=== PATIENT | female | born 1990 | race Caucasian/White ===

== ENCOUNTER 2016-10-26 09:22 | Emergency (ER) | payer MEDICAID ==
--- NOTE | 2016-10-26 09:45 | C.PDOC ---
History Of Present Illness Patient is a 26 y/o female that presents to the ED for evaluation of intermittent LLQ abdominal pain associated with nausea for the last 2 weeks. Patient reports constipation for the last 2 days. LMP was 09/20/16 and is late with menses. She reports usually has cramps prior to period. Otherwise, denies any vomiting, dysuria, vaginal bleeding, vaginal discharge, or any other associated symptoms at this time. Time Seen by Provider: 10/26/16 09:35 Chief Complaint (Nursing): Abdominal Pain History Per: Patient History/Exam Limitations: no limitations Onset/Duration Of Symptoms: Days (2 weeks) Current Symptoms Are (Timing): Still Present Location Of Pain/Discomfort: LLQ Radiation Of Pain To:: None Quality Of Discomfort: "Pain" Associated Symptoms: Nausea, Constipation. denies: Fever, Chills, Vomiting, Diarrhea, Loss Of Appetite, Back Pain, Chest Pain, Urinary Symptoms Exacerbating Factors: None Alleviating Factors: None Recent travel outside of the [place]: No Additional History Per: Patient Abnormal Vaginal Bleeding: No Last Menstral Period: 09/20/16 Past Medical History Reviewed: Historical Data, Nursing Documentation, Vital Signs Vital Signs: Last Vital Signs Temp 98.2 F 10/26/16 10:25 Pulse 72 10/26/16 10:25 Resp 20 10/26/16 10:25 BP 105/69 10/26/16 10:25 Pulse Ox 98 10/26/16 10:25 - Medical History PMH: No Chronic Diseases Surgical History: - [facility] Procedures MONITORING NOS (08/20/13) INJECT/INFUSE NEC (08/20/13) Family History: States: Unknown Family Hx - Social History Hx Alcohol Use: No Hx Substance Use: No - Immunization History Hx Tetanus Toxoid Vaccination: No Hx Influenza Vaccination: No Hx Pneumococcal Vaccination: No Review Of Systems Constitutional: Negative for: Fever, Chills Cardiovascular: Negative for: Chest Pain Respiratory: Negative for: Cough, Shortness of Breath Gastrointestinal: Positive for: Nausea, Abdominal Pain (LLQ), Constipation. Negative for: Vomiting, Diarrhea Genitourinary: Negative for: Dysuria, Frequency, Hematuria, Vaginal Discharge, Vaginal Bleeding Musculoskeletal: Negative for: Back Pain Skin: Negative for: Rash Neurological: Negative for: Weakness, Numbness, Headache, Dizziness Physical Exam - Physical Exam Appears: Non-toxic, No Acute Distress Skin: Normal Color, Warm, Dry Head: Atraumatic, Normacephalic Eye(s): bilateral: Normal Inspection, EOMI Nose: Normal Oral Mucosa: Moist Neck: Normal ROM, Supple Chest: Symmetrical Cardiovascular: Rhythm Regular, No Murmur Respiratory: Normal Breath Sounds, No Rales, No Rhonchi, No Wheezing Gastrointestinal/Abdominal: Soft, Tenderness (minimal left suprapubic), No Mass , No Distention, No Guarding, No Rebound Back: Normal Inspection, No CVA Tenderness Extremity: Normal ROM, No Tenderness, No Deformity, No Swelling Neurological/Psych: Oriented x3, Normal Speech Gait: Steady ED Course And Treatment O2 Sat by Pulse Oximetry: 100 (on RA) Pulse Ox Interpretation: Normal Progress Note: Urinalysis ordered and reviewed which was negative for and has WBC and LE. Patient remained afebrile in no acute distress. She reports abdominal pain has improved, abdomen is soft without guarding or signs of surgical pathology. Explain results to patient and will discharge with Rx. Advise follow up with her primary in one week. Disposition Counseled Patient/Family Regarding: Diagnosis, Need For Followup, Rx Given - [facility] Disposition: HOME/ ROUTINE Disposition Time: 10:13 Condition: STABLE Additional Instructions: Take antibiotic twice daily and be sure to finish taking all of antibiotic. Drink plenty of fluids. If urine culture was performed, call back for results in 2-3 days for results to confirm antibiotic is treating UTI well. Prescriptions: Ciprofloxacin HCl [Cipro] 500 mg PO BID #14 tab Instructions: Urinary Tract Infection in Women (DC) - POA Present On Arrival: None - Clinical Impression Clinical Impression: UTI (urinary tract infection) - PA / MANAGER WOUND CARE / Resident Statement MD/DO has reviewed & agrees with the documentation as recorded. - Scribe Statement The provider has reviewed the documentation as recorded by the Genesisibe Arthur Lewis All medical record entries made by the Alphonso were at my direction and personally dictated by me. I have reviewed the chart and agree that the record accurately reflects my personal performance of the history, physical exam, medical decision making, and the department course for this patient. I have also personally directed, reviewed, and agree with the discharge instructions and disposition.
[2016-10-26 10:09] LABS: RBC URINE 4 /hpf (0-3); URINE BILIRUBIN NEGATIVE (NEGATIVE); URINE BLOOD NEGATIVE (NEGATIVE); URINE COLOR Amber (YELLOW); URINE GLUCOSE (UA) NORMAL (Normal); URINE KETONE NEGATIVE (NEGATIVE); URINE LEUKOCYTE ESTERASE 2+ Leu/uL (Negative); URINE PROTEIN 1+ mg/dL (NEGATIVE); WBC URINE 18 /hpf (0-5)
[2016-10-26 10:37] VITALS: BP 105/69; PULSE 72; RESP 20; TEMP 98.2
[2016-10-26 14:58] VITALS: O2SAT 100
== END 2016-10-26 10:26 | disposition home or self-care (01) ==
LOC: C.ER 09:22
DX: N39.0 Urinary tract infection, site not specified (principal)

== ENCOUNTER 2017-03-10 15:43 | Emergency (ER) | payer MEDICAID ==
[2017-03-10 15:51] VITALS: BP 110/75; PULSE 79; RESP 18; TEMP 97.9; O2SAT 98
--- NOTE | 2017-03-10 16:25 | C.PDOC ---
History Of Present Illness 26 y/o female presents to the ED for evaluation after the cotton from a Q-tip was stuck in her left ear while cleaning the ear today. Patient states she was seen by Dr. Porter, who requested her to come to ER for further evaluation. Otherwise, denies any change in hearing, ear pain, swelling, or ear discharge. Time Seen by Provider: 03/10/17 16:08 Chief Complaint (Nursing): ENT Problem History Per: Patient History/Exam Limitations: None Onset/Duration Of Symptoms: Hrs Current Symptoms Are (Timing): Still Present Quality (Ear): Foreign Body. denies: Pain W/Touch, Redness, Swelling, Discharge Past Medical History Reviewed: Historical Data, Nursing Documentation, Vital Signs Vital Signs: Last Vital Signs Temp 97.9 F 03/10/17 15:47 Pulse 79 03/10/17 15:47 Resp 18 03/10/17 15:47 BP 110/75 03/10/17 15:47 Pulse Ox 98 03/10/17 16:42 Surgical History: - [facility] Procedures MONITORING NOS (08/20/13) INJECT/INFUSE NEC (08/20/13) Family History: States: Unknown Family Hx - Social History Hx Alcohol Use: No Hx Substance Use: No - Immunization History Hx Tetanus Toxoid Vaccination: No Hx Influenza Vaccination: No Hx Pneumococcal Vaccination: No Review Of Systems Except As Marked, All Systems Reviewed And Found Negative. Constitutional: Negative for: Fever, Chills ENT: Positive for: Other (foreign body in left ear ). Negative for: Ear Pain, Ear Discharge Physical Exam - Physical Exam Appears: Non-toxic, No Acute Distress Skin: Normal Color, Warm, Dry Head: Atraumatic, Normacephalic Eye(s): bilateral: Normal Inspection, EOMI Ear(s): Left: Other (small opacification at 2'0 clock position. No FB), Right: Normal Nose: Normal Oral Mucosa: Moist Neck: Normal ROM, Supple Chest: Symmetrical Respiratory: No Accessory Muscle Use Neurological/Psych: Oriented x3, Normal Speech ED Course And Treatment O2 Sat by Pulse Oximetry: 98 (RA) Pulse Ox Interpretation: Normal Progress Note: Patient is being discharged home with instructions to follow up with ENT in 1-2 days. Patient was advised not put Qtips in her ears. Pt seen and evaluated by Dr Fajardo, agree dupon plan and discharge. Disposition - Disposition Referrals: Trav Duvall MD [Staff Provider] - Disposition: HOME/ ROUTINE Disposition Time: 16:23 Condition: STABLE Additional Instructions: Do not put Qtips in your ears. Follow up with your primary medical doctor or clinic in 2-5 days for further evaluation. Return to the emergency department at any time if symptoms persist or worsen. 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 - Scribe Statement The provider has reviewed the documentation as recorded by the Scribe Arthur Lewis All medical record entries made by the Scribe were at my direction and personally dictated by me. I have reviewed the chart and agree that the record accurately reflects my personal performance of the history, physical exam, medical decision making, and the department course for this patient. I have also personally directed, reviewed, and agree with the discharge instructions and disposition.
== END 2017-03-10 16:35 | disposition home or self-care (01) ==
LOC: C.ER 15:43
DX: T16.2XXA Foreign body in left ear, initial encounter (principal); X58.XXXA Exposure to other specified factors, initial encounter

== ENCOUNTER 2017-05-16 14:08 | Emergency (ER) | payer MEDICAID ==
[2017-05-16 14:22] VITALS: BP 110/79; PULSE 65; RESP 16; TEMP 98.2; O2SAT 99
[2017-05-16] MEDS ORDERED: guaiFENesin 100 mg/5 ml Syrup UD PO STA (14:55)
--- NOTE | 2017-05-16 14:56 | C.PDOC ---
History Of Present Illness July Simmons is a 26 year old female, who presents to the emergency department complaining of cough, congestion, and subjective fever onset 3 days ago. Patient was seen by PMD who prescribed her antibiotics with no relief. Patient has not taken any cold or cough medicine. No further medical complaints. PMD: Bashir Porter Time Seen by Provider: 05/16/17 14:47 Chief Complaint (Nursing): Cough, Cold, Congestion History Per: Patient History/Exam Limitations: no limitations Onset/Duration Of Symptoms: Days (x3) Associated Symptoms: Fever (subjective), Cough, Nasal Congestion Past Medical History Reviewed: Historical Data, Nursing Documentation, Vital Signs Vital Signs: Last Vital Signs Temp 98.2 F 05/16/17 14:20 Pulse 65 05/16/17 14:20 Resp 16 05/16/17 14:20 BP 110/79 05/16/17 14:20 Pulse Ox 99 05/16/17 14:56 Surgical History: - [facility] Procedures MONITORING NOS (08/20/13) INJECT/INFUSE NEC (08/20/13) Family History: States: Unknown Family Hx - Social History Hx Tobacco Use: No Hx Alcohol Use: No Hx Substance Use: No - Immunization History Hx Tetanus Toxoid Vaccination: No Hx Influenza Vaccination: No Hx Pneumococcal Vaccination: No Review Of Systems Except As Marked, All Systems Reviewed And Found Negative. Constitutional: Positive for: Fever ENT: Positive for: Nose Congestion Respiratory: Positive for: Cough Physical Exam - Physical Exam Appears: No Acute Distress Skin: Normal Color, Warm, Dry Eye(s): bilateral: Normal Inspection, PERRL, EOMI Neck: Normal, Normal ROM, Supple Cardiovascular: Rhythm Regular, No Murmur Respiratory: Normal Breath Sounds Gastrointestinal/Abdominal: Normal Exam, Bowel Sounds, Soft, No Tenderness Extremity: Normal ROM, No Deformity, No Swelling Neurological/Psych: Normal Speech, Normal Motor, Normal Sensation ED Course And Treatment O2 Sat by Pulse Oximetry: 99 (RA) Pulse Ox Interpretation: Normal Medical Decision Making Medical Decision Making: mild viral syndrome, no s/s of bacterial infection, unimproved on PO ABX d/c ABX otc cold meds educated. Disposition Doctor Will See Patient In The: Office Counseled Patient/Family Regarding: Studies Performed, Diagnosis - Disposition Referrals: Bashir Porter MD [Non-Staff] - Disposition: HOME/ ROUTINE Disposition Time: 14:56 Condition: GOOD Additional Instructions: continue Dayquil/Nyquil as directed- used the less-expensive brands Home from work/school until afebrile for 24 hours Follow-up w your PMD as needed. Instructions: Viral Syndrome (ED) Forms: [employer] (Nauruan) - Clinical Impression Clinical Impression: Viral syndrome - Scribe Statement Yogesh Mora Provider Attestation: All medical record entries made by the Scribe were at my direction and personally dictated by me. I have reviewed the chart and agree that the record accurately reflects my personal performance of the history, physical exam, medical decision making, and the department course for this patient. I have also personally directed, reviewed, and agree with the discharge instructions and disposition.
[2017-05-16] MEDS ORDERED: guaiFENesin 100 mg/5 ml Syrup UD ONE (15:01)
== END 2017-05-16 15:02 | disposition home or self-care (01) ==
LOC: C.ER 14:08
DX: B34.9 Viral infection, unspecified (principal)

== ENCOUNTER 2017-08-21 13:19 | Emergency (ER) | payer MEDICAID ==
--- NOTE | 2017-08-21 13:53 | C.PDOC ---
History Of Present Illness 27 y/o female presents to the ER complaining of a myriad of symptoms. Patient reports that she has chest pain, back pain, abdominal pain, and body aches. Patient reports that she has throat pain for the past 6 months. Patient reports that she went to see an ENT 3 weeks ago and he gave her antibiotics. Patient denies fever, chills, and cough. Chief Complaint (Nursing): Chest Pain History Per: Patient History/Exam Limitations: no limitations Onset/Duration Of Symptoms: Days Current Symptoms Are (Timing): Still Present Severity: Moderate Past Medical History Reviewed: Historical Data, Nursing Documentation, Vital Signs Vital Signs: Last Vital Signs Temp 98.2 F 08/21/17 14:47 Pulse 65 08/21/17 14:47 Resp 16 08/21/17 14:47 BP 100/66 08/21/17 14:47 Pulse Ox 99 08/21/17 15:23 - Medical History PMH: No Chronic Diseases Surgical History: Tonsillectomy, - [facility] Procedures MONITORING NOS (08/20/13) INJECT/INFUSE NEC (08/20/13) Family History: States: No Known Family Hx - Social History Hx Tobacco Use: No Hx Alcohol Use: No Hx Substance Use: No - Immunization History Hx Tetanus Toxoid Vaccination: No Hx Influenza Vaccination: No Hx Pneumococcal Vaccination: No Review Of Systems Except As Marked, All Systems Reviewed And Found Negative. Constitutional: Positive for: Malaise. Negative for: Fever, Chills ENT: Positive for: Throat Pain, Throat Swelling Cardiovascular: Positive for: Chest Pain Respiratory: Negative for: Cough Gastrointestinal: Positive for: Abdominal Pain. Negative for: Nausea, Vomiting , Diarrhea Musculoskeletal: Positive for: Back Pain Physical Exam - Physical Exam Appears: Non-toxic, No Acute Distress Skin: Normal Color, Warm Head: Atraumatic, Normacephalic Eye(s): bilateral: Normal Inspection, PERRL Ear(s): Bilateral: Normal Nose: Normal Oral Mucosa: Moist Throat: Normal, No Erythema, No Exudate Chest: Symmetrical, Tenderness (tenderness on palpation in chest wall) Cardiovascular: Rhythm Regular Respiratory: Normal Breath Sounds, No Accessory Muscle Use, No Rales, No Rhonchi , No Wheezing Gastrointestinal/Abdominal: Normal Exam, Soft, No Tenderness Extremity: Normal ROM, No Tenderness, No Deformity, No Swelling, Other (diffuse myalgia to upper extremities) ED Course And Treatment ECG: Interpreted By Me, Viewed By Me ECG Rhythm: Sinus Rhythm O2 Sat by Pulse Oximetry: 99 (RA) Pulse Ox Interpretation: Normal Progress Note: Patient given Maalox. Patient states that her throat feels better. Patient has been given 2 weeks of PPIS and discharged. Medical Decision Making Medical Decision Making: Differential Diagnoses: --GERD vs. Viral Syndrome --PE Unlikely --No PERC Criteria Plan: -Advise patient for viral syndrome and possible GERD Disposition - Disposition Referrals: [facility] [Outside] Disposition: HOME/ ROUTINE Disposition Time: 23:49 Condition: GOOD Prescriptions: Pantoprazole Sodium [Protonix] 40 mg PO DAILY #14 ect Instructions: Diet for Ulcers and Gastritis (ED), Gastroesophageal Reflux Disease (ED) Forms: General Discharge Instructions, [facility] (Burmese) Print Language: OMANI - Clinical Impression Clinical Impression: Pleuritic pain, GERD (gastroesophageal reflux disease) - Scribe Statement The provider has reviewed the documentation as recorded by the Alphonso Tillman Provider Attestation: All medical record entries made by the Scribe were at my direction and personally dictated by me. I have reviewed the chart and agree that the record accurately reflects my personal performance of the history, physical exam, medical decision making, and the department course for this patient. I have also personally directed, reviewed, and agree with the discharge instructions and disposition.
[2017-08-21] MEDS ORDERED: Aluminum Hydroxide/Magnesium Hydroxide Susp (30 mL) ONE (14:11)
[2017-08-21] MEDS: Alum-Mag Hydrox-Simethicone Susp (30 mL) PO STA (14:22)
[2017-08-21 14:50] VITALS: BP 100/66; PULSE 65; RESP 16; TEMP 98.2
[2017-08-21 15:08] VITALS: O2SAT 99
== END 2017-08-21 14:47 | disposition home or self-care (01) ==
LOC: C.ER 13:19
DX: K21.9 Gastro-esophageal reflux disease without esophagitis (principal); R07.81 Pleurodynia

== ENCOUNTER 2017-09-11 08:17 | Emergency (ER) | payer MEDICAID ==
--- NOTE | 2017-09-11 08:36 | C.PDOC ---
History Of Present Illness 27 y/o female presents to ED with complaints of chest, breast pain and headache for 5 days with associated dizziness. Patient was seen on 08/21/16 at ED for same symptoms, followed up with clinic and ENT specialist had antibiotics for throat. Patient states throat is better but chest pain and headache persisted which prompted visit to ED. Patient denies fever, chills, weakness, numbness or any other complaints at this time. Time Seen by Provider: 09/11/17 08:35 Chief Complaint (Nursing): Chest Pain History Per: Patient History/Exam Limitations: no limitations Onset/Duration Of Symptoms: Days Current Symptoms Are (Timing): Still Present Past Medical History Reviewed: Historical Data, Nursing Documentation, Vital Signs Vital Signs: Last Vital Signs Temp 97.8 F 09/11/17 12:26 Pulse 78 09/11/17 12:26 Resp 16 09/11/17 12:26 BP 109/74 09/11/17 12:26 Pulse Ox 100 09/11/17 12:26 Surgical History: Tonsillectomy, - [facility] Procedures MONITORING NOS (08/20/13) INJECT/INFUSE NEC (08/20/13) Family History: States: No Known Family Hx - Social History Hx Tobacco Use: No Hx Alcohol Use: No Hx Substance Use: No - Immunization History Hx Tetanus Toxoid Vaccination: No Hx Influenza Vaccination: No Hx Pneumococcal Vaccination: No Review Of Systems Constitutional: Negative for: Fever, Chills Eyes: Negative for: Vision Change Cardiovascular: Positive for: Chest Pain Gastrointestinal: Negative for: Nausea, Vomiting Neurological: Positive for: Headache, Dizziness. Negative for: Weakness, Numbness Physical Exam - Physical Exam Appears: Non-toxic, No Acute Distress Skin: Warm, Dry, No Rash Head: Atraumatic, Normacephalic Oral Mucosa: Moist Neck: Supple Cardiovascular: Rhythm Regular Respiratory: Normal Breath Sounds, No Rales, No Rhonchi, No Wheezing Gastrointestinal/Abdominal: Soft, No Tenderness, No Guarding, No Rebound Back: No CVA Tenderness ED Course And Treatment - Laboratory Results Result Diagrams: 09/11/17 09:24 09/11/17 09:24 ECG: Interpreted By Me, Viewed By Me ECG Rhythm: Sinus Rhythm Rate From EC (BPM) O2 Sat by Pulse Oximetry: 99 (RA) Pulse Ox Interpretation: Normal - Other Rad CXR X-Ray: Viewed By Me, Read By Radiologist Interpretation: Accession No. : [id number]. Patient Name / ID : CAMRYN CRAWFORD / [id number]. Exam Date : 09/11/2017 09:33:49 ( Approved ). Study Comment : Sex / Age : F / 27Y. Creator : Paloma Swartz MD. Dictator : Paloma Swartz MD. Weeder : Manager Environmental Affairs : Paloma Swartz MD. Approver2 : Report Date : 09/11/2017 12:38:51. My Comment : . HISTORY: chest pain. COMPARISON: None available. TECHNIQUE: Chest PA and lateral. FINDINGS: Examination limited by habitus. LUNGS: No focal consolidation. Please note that chest x-ray has limited sensitivity for the detection of pulmonary masses. PLEURA: No significant pleural effusion identified. No definite pneumothorax . CARDIOVASCULAR: The cardiomediastinal silhouette appears within normal limits of size. OSSEOUS STRUCTURES: No acute osseous abnormality identified. VISUALIZED UPPER ABDOMEN: Unremarkable. OTHER FINDINGS: None. IMPRESSION: No focal consolidation, significant pleural effusion, or definite pneumothorax identified. - CT Scan/US Head CT Other Rad Studies (CT/US): Read By Radiologist, Radiology Report Reviewed CT/US Interpretation: Accession No. : [id number]. Patient Name / ID : CAMRYN CRAWFORD / [id number]. Exam Date : 09/11/2017 10:32:46 ( Approved ). Study Comment : Sex / Age : F / 27Y. Creator : Angelica Quintero. Dictator : Paloma Swartz MD. Weeder : Manager Environmental Affairs : Paloma Swartz MD. Approver2 : Report Date : 09/11/2017 10:48:27. My Comment : . PROCEDURE: CT HEAD WITHOUT CONTRAST. HISTORY: headache. COMPARISON: None available. TECHNIQUE: Axial computed tomography images were obtained through the head/ brain without intravenous contrast. Radiation dose: Total exam DLP = 805.00 mGy-cm. This CT exam was performed using one or more of the following dose reduction techniques: Automated exposure control, adjustment of the mA and/or kV according to patient size, and/or use of iterative reconstruction technique. FINDINGS: HEMORRHAGE: No intracranial hemorrhage. BRAIN: No mass effect or edema. No atrophy or chronic microvascular ischemic changes. VENTRICLES: Unremarkable. No hydrocephalus. CALVARIUM: Unremarkable. PARANASAL SINUSES: Unremarkable as visualized. No significant inflammatory changes. MASTOID AIR CELLS: Unremarkable as visualized. No inflammatory changes. OTHER FINDINGS: None. IMPRESSION: No acute intracranial pathology identified. Progress Note: Blood work, Head CT, ECG, CXR, IV fluids Ordered. On re- evaluation patient feels better and is stable to be d/c home. Disposition - Disposition Referrals: [facility] [Outside] Disposition: HOME/ ROUTINE Disposition Time: 12:17 Condition: STABLE Additional Instructions: Follow up with PMD within 1-2 days. Return to ED if feel worse. Instructions: Breast Self Exam for Women (ED), Musculoskeletal Pain (ED), General Headache (ED) Forms: [facility] (Divehi), Work Excuse - Clinical Impression Clinical Impression: Headache, Breast pain, Myalgia - PA / SCREENER OPERATOR / Resident Statement MD/DO has reviewed & agrees with the documentation as recorded. - Scribe Statement The provider has reviewed the documentation as recorded by the Alphonso Jauregui All medical record entries made by the Alphonso were at my direction and personally dictated by me. I have reviewed the chart and agree that the record accurately reflects my personal performance of the history, physical exam, medical decision making, and the department course for this patient. I have also personally directed, reviewed, and agree with the discharge instructions and disposition.
[2017-09-11] MEDS ORDERED: Sodium Chloride 0.9% 1,000 ML IV STA (09:04)
[2017-09-11] MEDS ORDERED: Sodium Chloride 0.9% 1,000 ML ONE (09:12)
[2017-09-11 09:19] LABS: HCG,QUALITATIVE URINE NEGATIVE (NEGATIVE)
[2017-09-11 09:23] LABS: SQUAMOUS EPITHIAL 21 /hpf (0-5); URINE BACTERIA RARE (<OCC)
[2017-09-11 09:25] LABS: URINE BILIRUBIN NEGATIVE (NEGATIVE); URINE CLARITY Clear (Clear); URINE COLOR YELLOW (YELLOW); URINE GLUCOSE (UA) NEGATIVE (Normal)
[2017-09-11 09:26] LABS: URINE BLOOD NEGATIVE (NEGATIVE); URINE LEUKOCYTE ESTERASE TRACE Leu/uL (Negative); URINE NITRATE NEGATIVE (NEGATIVE); URINE PROTEIN NEGATIVE (NEGATIVE); URINE UROBILINOGEN 0.2 mg/dL (0.2-1.0)
[2017-09-11 09:29] LABS: BASO # 0.1 K/uL (0.0-0.2); EOS # 0.1 K/uL (0.0-0.7); HEMOGLOBIN 14.9 g/dL (11.0-16.0); LYMPH # 4.5 K/uL (1.0-4.3); LYMPH % 44.9 % (20.0-40.0); MEAN CELL VOLUME 83.1 fL (81.0-99.0); MEAN CORPUSCULAR HEMOGLOBIN 29.5 pg (27.0-31.0); MEAN CORPUSCULAR HGB CONC 35.5 g/dL (33.0-37.0); MEAN PLATELET VOLUME 9.8 fL (7.2-11.7); MONO # 0.8 K/uL (0.0-0.8); MONO % 7.9 % (0.0-10.0); NEUT # 4.6 K/uL (1.8-7.0); NEUT % 45.2 % (50.0-75.0); NRBC % 0.1 % (0.0-2.0); RBC 5.06 Mil/uL (3.80-5.20); RED CELL DISTRIBUTION WIDTH 12.8 % (11.5-14.5); WHITE BLOOD COUNT 10.1 K/uL (4.8-10.8)
[2017-09-11 09:44] LABS: ALB/GLOB RATIO 1.1 (1.0-2.1); ALBUMIN 3.6 g/dL (3.5-5.0); ALT/SGPT 18 U/L (9-52); AST/SGOT 16 U/L (14-36); BLOOD UREA NITROGEN 13 mg/dL (7-17); CALCIUM 8.5 mg/dl (8.6-10.4); GFR AFRICAN-AMERICAN > 60; GFR NON-AFRICAN AMERICAN > 60
[2017-09-11 09:46] LABS: PARTIAL THROMBOPLASTIN TIME 26 SECONDS (21-34); PROTHROMBIN TIME 11.5 SECONDS (9.7-12.2)
[2017-09-11 09:49] LABS: D DIMER < 200 ng/mlDDU (0-243)
--- NOTE | 2017-09-11 10:53 | CT ---
PROCEDURE: CT HEAD WITHOUT CONTRAST. HISTORY: headache COMPARISON: None available. TECHNIQUE: Axial computed tomography images were obtained through the head/brain without intravenous contrast. Radiation dose: Total exam DLP = 805.00 mGy-cm. This CT exam was performed using one or more of the following dose reduction techniques: Automated exposure control, adjustment of the mA and/or kV according to patient size, and/or use of iterative reconstruction technique. FINDINGS: HEMORRHAGE: No intracranial hemorrhage. BRAIN: No mass effect or edema. No atrophy or chronic microvascular ischemic changes. VENTRICLES: Unremarkable. No hydrocephalus. CALVARIUM: Unremarkable. PARANASAL SINUSES: Unremarkable as visualized. No significant inflammatory changes. MASTOID AIR CELLS: Unremarkable as visualized. No inflammatory changes. OTHER FINDINGS: None. IMPRESSION: No acute intracranial pathology identified.
[2017-09-11 12:27] VITALS: BP 109/74; PULSE 78; RESP 16; TEMP 97.8
--- NOTE | 2017-09-11 12:40 | RAD ---
HISTORY: chest pain COMPARISON: None available. TECHNIQUE: Chest PA and lateral FINDINGS: Examination limited by habitus. LUNGS: No focal consolidation. Please note that chest x-ray has limited sensitivity for the detection of pulmonary masses. PLEURA: No significant pleural effusion identified. No definite pneumothorax . CARDIOVASCULAR: The cardiomediastinal silhouette appears within normal limits of size. OSSEOUS STRUCTURES: No acute osseous abnormality identified. VISUALIZED UPPER ABDOMEN: Unremarkable. OTHER FINDINGS: None. IMPRESSION: No focal consolidation, significant pleural effusion, or definite pneumothorax identified.
[2017-09-11 17:25] VITALS: O2SAT 99
--- NOTE | 2017-09-12 19:25 | CARD ---
APPROVED REPORT EKG Measurement Heart [id number] <Conclusion> Normal sinus rhythm with sinus arrhythmia Normal ECG
== END 2017-09-11 12:26 | disposition home or self-care (01) ==
LOC: C.ER 08:17
DX: N64.4 Mastodynia (principal); R51 Headache; M79.1 Myalgia
CPT/HCPCS: 70450; 71046; 80053; 81001; 82550; 84703; 85025; 85378; 85610; 85730; 93005; 96360; 99285; J7040

== ENCOUNTER 2018-01-16 14:18 | Emergency (ER) | payer MEDICAID ==
--- NOTE | 2018-01-16 15:15 | C.PDOC ---
History Of Present Illness 27 Y/O FEMALE PRESENTS TO ED WITH C/O PERSIST LEFT SIDED CP SINCE YEST. ONSET WHILE SWALLOWING ADVIL. DENIES DIFFICULTY SWALLOWING OR HO ESOPH STRICTURE. PATIENT REPORTS LEFT SIDED CP LOCALIZED AN CONSTANT, UNCHANGED FROM YEST. NO ASSOC W MOVEMENT. +PLEURITIC. PS TAKES ADVIL TWICE A WEEK FOR CASTRO. DENIES OTHER PMH. PS ABLE TO EAT/DRINK WO DIFF TODAY BUT STILL W PERSIST PAIN. EXAM MILD DIST NONTOXIC HEENT NEG CHEST WALL NONTEND LUNGS CTA B/L NO W/R/R SPEAKING FULL SENTENCES NO RETRACTIONS CV RRR EXT NO EDEMA; SYMMETRICAL WARM DRY REMAINDER NEG Time Seen by Provider: 01/16/18 14:58 Chief Complaint (Nursing): Chest Pain History Per: Patient History/Exam Limitations: no limitations Onset/Duration Of Symptoms: Days Current Symptoms Are (Timing): Still Present Quality: "Pain" Past Medical History Reviewed: Historical Data, Nursing Documentation, Vital Signs Vital Signs: Last Vital Signs Temp 99.1 F 01/16/18 14:30 Pulse 95 H 01/16/18 15:17 Resp 18 01/16/18 15:17 BP 109/81 01/16/18 14:30 Pulse Ox 10 L 01/16/18 15:58 - Medical History PMH: No Chronic Diseases Surgical History: Tonsillectomy, - [facility] Procedures MONITORING NOS (08/20/13) INJECT/INFUSE NEC (08/20/13) Family History: States: No Known Family Hx - Social History Hx Tobacco Use: No Hx Alcohol Use: No Hx Substance Use: No - Immunization History Hx Tetanus Toxoid Vaccination: No Hx Influenza Vaccination: No Hx Pneumococcal Vaccination: No Review Of Systems Constitutional: Negative for: Fever, Chills Cardiovascular: Positive for: Chest Pain Respiratory: Negative for: Cough, Shortness of Breath Gastrointestinal: Negative for: Nausea, Vomiting Physical Exam - Physical Exam Appears: Non-toxic, Other (In mild distress. Speaking in full sentences) Skin: Warm, Dry, No Rash Head: Atraumatic, Normacephalic Eye(s): bilateral: Normal Inspection Oral Mucosa: Moist Throat: Normal, No Erythema, No Exudate Chest: Symmetrical, No Tenderness Respiratory: Normal Breath Sounds, No Accessory Muscle Use, No Rales, No Rhonchi , No Wheezing Gastrointestinal/Abdominal: Soft, No Tenderness, No Guarding, No Rebound Extremity: No Pedal Edema, Capillary Refill (<2 seconds) Extremity: Bilateral: Normal ROM Neurological/Psych: Oriented x3, Normal Speech, Normal Cognition ED Course And Treatment - Laboratory Results Result Diagrams: 01/16/18 15:36 01/16/18 15:36 Urine POC: Negative ECG: Interpreted By Me ECG Rhythm: Sinus Rhythm ECG Interpretation: Normal Interpretation Of EC Rate From EC (BPM) O2 Sat by Pulse Oximetry: 10 (RA) - Radiology CXR: Interpreted by Me CXR Interpretation: Yes: No Acute Disease Reevaluation Time: 16:41 Reassessment Condition: Improved Disposition Counseled Patient/Family Regarding: Studies Performed, Diagnosis, Need For Followup, Rx Given - Disposition Referrals: YOUR,PMD [Other] Disposition: HOME/ ROUTINE Disposition Time: 16:42 Condition: IMPROVED Additional Instructions: APPLY PATCH TO AFFECTED AREA. MAX 3 PATCHES AT A TIME. REMOVE PATCH 12 HOURS AFTER INITIAL APPLICATION. ALTERNATE 12 HOURS ON, 12 HOURS OFF. Prescriptions: Cyclobenzaprine [Flexeril] 10 mg PO TID #15 tab Lidocaine 5% [Lidoderm] 1 ea TD PRN PRN #10 patch PRN Reason: Pain, Moderate (4-7) Instructions: Chest Pain That Is Not Caused by the Heart (DC) Forms: [email or web address] (Eth[place]ian) - Clinical Impression Clinical Impression: Chest wall pain - Scribe Statement The provider has reviewed the documentation as recorded by the Scribfernanda Jauregui All medical record entries made by the Scribe were at my direction and personally dictated by me. I have reviewed the chart and agree that the record accurately reflects my personal performance of the history, physical exam, medical decision making, and the department course for this patient. I have also personally directed, reviewed, and agree with the discharge instructions and disposition.
[2018-01-16 15:17] VITALS: RESP 18
[2018-01-16 15:39] LABS: BASO # 0.1 K/uL (0.0-0.2); EOS # 0.1 K/uL (0.0-0.7); EOS % 1.4 % (0.0-4.0); HEMOGLOBIN 14.6 g/dL (11.0-16.0); LYMPH # 2.5 K/uL (1.0-4.3); LYMPH % 35.1 % (20.0-40.0); MEAN CELL VOLUME 82.3 fL (81.0-99.0); MEAN CORPUSCULAR HEMOGLOBIN 28.4 pg (27.0-31.0); MEAN CORPUSCULAR HGB CONC 34.4 g/dL (33.0-37.0); MEAN PLATELET VOLUME 9.9 fL (7.2-11.7); MONO # 0.7 K/uL (0.0-0.8); MONO % 9.4 % (0.0-10.0); NEUT # 3.8 K/uL (1.8-7.0); NEUT % 53.1 % (50.0-75.0); NRBC % 0.4 % (0.0-2.0); RBC 5.15 Mil/uL (3.80-5.20); RED CELL DISTRIBUTION WIDTH 13.5 % (11.5-14.5); WHITE BLOOD COUNT 7.1 K/uL (4.8-10.8)
--- NOTE | 2018-01-16 15:46 | RAD ---
HISTORY: chest pain COMPARISON: Chest radiograph dated 09/11/2017. TECHNIQUE: Chest PA and lateral FINDINGS: LUNGS: No active pulmonary disease. PLEURA: No significant pleural effusion identified. No pneumothorax apparent. CARDIOVASCULAR: Normal. OSSEOUS STRUCTURES: No significant abnormalities. VISUALIZED UPPER ABDOMEN: Normal. OTHER FINDINGS: None. IMPRESSION: No active disease.
[2018-01-16 15:52] LABS: BLOOD UREA NITROGEN 9 mg/dL (7-17); CALCIUM 9.4 mg/dl (8.6-10.4); GFR AFRICAN-AMERICAN > 60; GFR NON-AFRICAN AMERICAN > 60
[2018-01-16] MEDS ORDERED: Lidocaine 5% Patch TD STA (16:41)
[2018-01-16] MEDS ORDERED: Lidocaine 5% Patch TD ONE (17:04)
[2018-01-16 17:16] VITALS: BP 107/78; PULSE 83; TEMP 98.8; O2SAT 100
== END 2018-01-16 17:16 | disposition home or self-care (01) ==
LOC: C.ER 14:18
DX: R07.89 Other chest pain (principal)
CPT/HCPCS: 71046; 80048; 84484; 85025; 85378; 96374; 99285; J1885

== ENCOUNTER 2018-03-04 13:19 | Emergency (ER) | payer MEDICAID ==
[2018-03-04 13:31] VITALS: BP 108/71; PULSE 100; RESP 18; TEMP 98.1; O2SAT 97
[2018-03-04] MEDS ORDERED: Alum-Mag Hydrox-Simethicone Susp (30 mL) ONE (14:07)
[2018-03-04] MEDS: Alum-Mag Hydrox-Simethicone Susp (30 mL) PO STA (14:07)
--- NOTE | 2018-03-04 14:38 | C.PDOC ---
History Of Present Illness 27 yo female c/o left ear pain for two days. Yesterday, her right ear started to hurt. Also notes sore throat x1 week. Denies fever, cough, congestion, neck pain, n/v, chest pain or sob. No change in hearing or ear discharge. Time Seen by Provider: 03/04/18 13:34 Chief Complaint (Nursing): ENT Problem History Per: Patient History/Exam Limitations: no limitations Onset/Duration Of Symptoms: Days Current Symptoms Are (Timing): Still Present Location Of Pain: Ear(s), Throat Past Medical History Vital Signs: Last Vital Signs Temp 98.1 F 03/04/18 13:28 Pulse 100 H 03/04/18 13:28 Resp 18 03/04/18 13:28 BP 108/71 03/04/18 13:28 Pulse Ox 97 03/04/18 14:38 Surgical History: Tonsillectomy, - [facility] Procedures MONITORING NOS (08/20/13) INJECT/INFUSE NEC (08/20/13) Family History: States: Unknown Family Hx - Social History Hx Tobacco Use: No Hx Alcohol Use: No Hx Substance Use: No - Immunization History Hx Tetanus Toxoid Vaccination: No Hx Influenza Vaccination: No Hx Pneumococcal Vaccination: No Review Of Systems Except As Marked, All Systems Reviewed And Found Negative. ENT: Positive for: Ear Pain, Throat Pain Physical Exam - Physical Exam Appears: Well, Non-toxic, No Acute Distress Skin: Normal Color, Warm, Dry Head: Atraumatic, Normacephalic Eye(s): bilateral: Normal Inspection, PERRL, EOMI Ear(s): Bilateral: Normal, Other ((-) mastoid tenderness (-) tragus tenderness) Nose: Normal Oral Mucosa: Moist Throat: Normal, No Erythema, No Exudate Neck: Normal, Normal ROM, Supple Chest: Symmetrical Cardiovascular: Rhythm Regular Respiratory: Normal Breath Sounds Gastrointestinal/Abdominal: Normal Exam Back: Normal Inspection Extremity: Normal ROM Neurological/Psych: Oriented x3, Normal Speech ED Course And Treatment O2 Sat by Pulse Oximetry: 97 Progress Note: Strep negative. Discussed symptomatic treatment for viral illness and outpt follow up with PMD in 1-2 days. Disposition - Disposition Disposition: HOME/ ROUTINE Disposition Time: 14:36 Condition: STABLE Additional Instructions: Follow up with your primary medical doctor or clinic in 2-5 days for further evaluation. Take medications as prescribed. Return to the emergency department at any time if symptoms persist or worsen. Prescriptions: Naproxen [Naprosyn] 1 tab PO BID PRN #20 tab PRN Reason: Pain Instructions: Viral Pharyngitis (DC) Forms: [employer] (Austrian) - Clinical Impression Clinical Impression: Viral syndrome, Pharyngitis
== END 2018-03-04 14:44 | disposition home or self-care (01) ==
LOC: C.ER 13:19
DX: J02.9 Acute pharyngitis, unspecified (principal); B34.9 Viral infection, unspecified

== ENCOUNTER 2018-10-14 14:52 | Emergency (ER) | payer MEDICAID ==
[2018-10-14 15:09] VITALS: TEMP 98
--- NOTE | 2018-10-14 15:40 | C.PDOC ---
History Of Present Illness 28 y/o female presents to the ED with complaints of headache, cough, and sore throat for 3 days. Patient is also complaining of sinus pressure. No fevers or chills. Cough is not productive. Patient denies taking any OTC medication for symptom relief. Time Seen by Provider: 10/14/18 15:12 Chief Complaint (Nursing): Headache History Per: Patient History/Exam Limitations: no limitations Onset/Duration Of Symptoms: Days (x 3) Current Symptoms Are (Timing): Still Present Quality: Pressure (to sinuses) Past Medical History Reviewed: Historical Data, Nursing Documentation, Vital Signs Vital Signs: Last Vital Signs Temp 98.0 F 10/14/18 15:07 Pulse 70 10/14/18 15:07 Resp 20 10/14/18 15:07 BP 111/67 10/14/18 15:07 Pulse Ox 100 10/14/18 15:07 - Medical History PMH: No Chronic Diseases Surgical History: Tonsillectomy, - [facility] Procedures MONITORING NOS (08/20/13) INJECT/INFUSE NEC (08/20/13) Family History: States: Unknown Family Hx - Social History Hx Tobacco Use: No Hx Alcohol Use: No Hx Substance Use: No - Immunization History Hx Tetanus Toxoid Vaccination: Yes Hx Influenza Vaccination: Yes Hx Pneumococcal Vaccination: No Review Of Systems Except As Marked, All Systems Reviewed And Found Negative. Constitutional: Negative for: Fever, Chills Eyes: Negative for: Vision Change ENT: Positive for: Throat Pain Cardiovascular: Negative for: Chest Pain Respiratory: Positive for: Cough. Negative for: Shortness of Breath, Wheezing Gastrointestinal: Negative for: Vomiting, Diarrhea Neurological: Positive for: Headache (sinus pressure). Negative for: Weakness, Numbness, Dizziness Physical Exam - Physical Exam Appears: Non-toxic, No Acute Distress Skin: Normal Color, Warm, Dry Head: Atraumatic, Normacephalic, Tenderness (Frontal sinus tenderness) Eye(s): bilateral: Normal Inspection, PERRL, EOMI Nose: Normal Oral Mucosa: Moist Throat: Erythema (Tonsillar erythema and hypertrophy), No Exudate Neck: Normal ROM, Supple Chest: Symmetrical Cardiovascular: Rhythm Regular, No Murmur Respiratory: Normal Breath Sounds, No Rales, No Rhonchi, No Wheezing Gastrointestinal/Abdominal: Soft, No Tenderness, No Distention Extremity: Bilateral: Atraumatic, Normal Color And Temperature, Normal ROM Pulses: Left Radial: Normal, Right Radial: Normal Neurological/Psych: Oriented x3 ED Course And Treatment O2 Sat by Pulse Oximetry: 100 (RA) Pulse Ox Interpretation: Normal Medical Decision Making Medical Decision Making: Impression: Sinusitis, Pharyngitis Plan: - 500 mg PO Amoxicillin - 600 mg PO Motrin - 30 mg PO Sudafed Patient will be discharged home with antibiotics. Counseled regarding diagnoses and follow-up instructions. Disposition - Disposition Referrals: [facility] [Outside] Disposition: HOME/ ROUTINE Disposition Time: 16:43 Condition: STABLE Additional Instructions: follow up with your doctor within 2 days call to make an appointment take medication as prescribed return to ER if symptoms worsens or progress Prescriptions: Amoxicillin 875 mg PO BID #20 tablet Naproxen [Naprosyn] 500 mg PO BID PRN #16 tab PRN Reason: Pain, Moderate (4-7) Pseudoephedrine HCl [Sudafed] 30 mg PO TID PRN #15 tablet PRN Reason: Cough And Congestion Instructions: Sore Throat, Adult (DC), Sinusitis, Adult (DC) Forms: [employer] ([place]er), General Discharge Instructions, Work Excuse - Clinical Impression Clinical Impression: Sinusitis, Pharyngitis - Scribe Statement The provider has reviewed the documentation as recorded by the Alphonso Mcgregor Provider Attestation: All medical record entries made by the Alphonso were at my direction and personally dictated by me. I have reviewed the chart and agree that the record accurately reflects my personal performance of the history, physical exam, medical decision making, and the department course for this patient. I have also personally directed, reviewed, and agree with the discharge instructions and disposition.
[2018-10-14 17:06] VITALS: BP 123/67; PULSE 84; RESP 16; O2SAT 98
== END 2018-10-14 17:05 | disposition home or self-care (01) ==
LOC: C.ER 14:52
DX: J32.9 Chronic sinusitis, unspecified (principal); J02.9 Acute pharyngitis, unspecified

== ENCOUNTER 2018-10-31 16:17 | Emergency (ER) | payer MEDICAID ==
[2018-10-31 16:36] VITALS: RESP 18
--- NOTE | 2018-10-31 17:03 | C.PDOC ---
History Of Present Illness 28 y/o female otherwise well presents to the ER c/o sharp, tight chest pain for x2 days. Associated sx includes heavy b/l arms R>L, SOB, mild abdominal pain, nausea and headache. Pt reports she woke up with the pain x2 days ago, but yesterday she was fine until she got up to get water, it started to hurt her again. Pt denies fever, running nose, neck pain and vomiting. Pt also denies concern for . Time Seen by Provider: 10/31/18 16:36 Chief Complaint (Nursing): Chest Pain History Per: Patient History/Exam Limitations: no limitations Onset/Duration Of Symptoms: Days (x2) Current Symptoms Are (Timing): Still Present Quality: Tightness, Other (sharp) Past Medical History Reviewed: Historical Data, Nursing Documentation, Vital Signs Vital Signs: Last Vital Signs Temp 99 F 10/31/18 16:20 Pulse 97 H 10/31/18 16:20 Resp 18 10/31/18 16:20 BP 109/78 10/31/18 16:20 Pulse Ox 97 10/31/18 16:20 Surgical History: Tonsillectomy, - [facility] Procedures MONITORING NOS (08/20/13) INJECT/INFUSE NEC (08/20/13) Family History: States: Unknown Family Hx - Social History Hx Tobacco Use: No Hx Alcohol Use: No Hx Substance Use: No - Immunization History Hx Tetanus Toxoid Vaccination: No Hx Influenza Vaccination: Yes Hx Pneumococcal Vaccination: No Review Of Systems Except As Marked, All Systems Reviewed And Found Negative. Constitutional: Negative for: Fever ENT: Negative for: Nose Discharge Cardiovascular: Positive for: Chest Pain Gastrointestinal: Positive for: Nausea, Abdominal Pain (mild). Negative for: Vomiting Musculoskeletal: Positive for: Other (b/l heavy arms; R>L). Negative for: Neck Pain Physical Exam - Physical Exam Appears: Non-toxic, No Acute Distress Skin: Warm, Dry Head: Normacephalic Eye(s): bilateral: Normal Inspection Chest: Symmetrical, No Deformity, Tenderness (reproducible chest wall pain ) Cardiovascular: Rhythm Regular Respiratory: Normal Breath Sounds, No Rales, No Rhonchi, No Wheezing Gastrointestinal/Abdominal: Soft, No Tenderness Extremity: Normal ROM (x4) Pulses: Left Radial: Normal, Right Radial: Normal Neurological/Psych: Oriented x3, Normal Speech, Normal Cognition, Normal Motor, Normal Sensation ED Course And Treatment O2 Sat by Pulse Oximetry: 97 (RA) Pulse Ox Interpretation: Normal - Other Rad chest X-Ray: Read By Radiologist Interpretation: Accession No. : [id number]. Patient Name / ID : CAMRYN CRAWFORD / [id number]. Exam Date : 10/31/2018 17:05:08 ( Approved ). Study Comment : Sex / Age : F / 28Y. Creator : Emile Chase MD. Dictator : Emile Chase MD. Property Management Supervisor : Poolroom Table Attendant : Emile Chase MD. Approver2 : Report Date : 10/31/2018 18:36:46. My Comment : . Date of service: 10/31/2018. HISTORY: chest wall pain. COMPARISON: 01/16/2018. TECHNIQUE: Chest PA and lateral views. FINDINGS: LUNGS: No active pulmonary disease. PLEURA: No significant pleural effusion identified. No pneumothorax apparent. CARDIOVASCULAR: No aortic atherosclerotic calcification present. Normal cardiac size. No pulmonary vascular congestion. OSSEOUS STRUCTURES: No significant abnormalities. VISUALIZED UPPER ABDOMEN: Normal. OTHER FINDINGS: None. IMPRESSION: No active disease. Medical Decision Making Medical Decision Making: Plans: -- CXR -- ibuprofen -- tylenol Patient feeling better, chest wall pain, EKG and CXR wnl Disposition Counseled Patient/Family Regarding: Studies Performed, Diagnosis, Need For Followup, Rx Given - Disposition Referrals: [facility] [Outside] Disposition: HOME/ ROUTINE Disposition Time: 18:25 Condition: STABLE Prescriptions: Ibuprofen [Motrin] 400 mg PO TID #24 tab Instructions: Costochondritis Forms: General Discharge Instructions, [facility] (Portuguese), Work Excuse - POA Present On Arrival: None - Clinical Impression Clinical Impression: Costochondral pain - Scribe Statement The provider has reviewed the documentation as recorded by the Scribe Landis Do Provider Attestation: All medical record entries made by the Scribe were at my direction and personally dictated by me. I have reviewed the chart and agree that the record accurately reflects my personal performance of the history, physical exam, medical decision making, and the department course for this patient. I have also personally directed, reviewed, and agree with the discharge instructions and disposition.
[2018-10-31 18:39] VITALS: BP 114/80; PULSE 88; TEMP 98.7
--- NOTE | 2018-10-31 18:40 | RAD ---
Date of service: 10/31/2018 HISTORY: chest wall pain COMPARISON: 01/16/2018 TECHNIQUE: Chest PA and lateral views FINDINGS: LUNGS: No active pulmonary disease. PLEURA: No significant pleural effusion identified. No pneumothorax apparent. CARDIOVASCULAR: No aortic atherosclerotic calcification present. Normal cardiac size. No pulmonary vascular congestion. OSSEOUS STRUCTURES: No significant abnormalities. VISUALIZED UPPER ABDOMEN: Normal. OTHER FINDINGS: None. IMPRESSION: No active disease.
[2018-10-31 18:49] VITALS: O2SAT 97
--- NOTE | 2018-11-03 01:38 | CARD ---
APPROVED REPORT Date of service: 10/31/2018 EKG Measurement Heart [id number] <Conclusion> Normal sinus rhythm with sinus arrhythmia Normal ECG
== END 2018-10-31 18:39 | disposition home or self-care (01) ==
LOC: C.ER 16:17
DX: R07.1 Chest pain on breathing (principal)

== ENCOUNTER 2018-11-12 15:22 | Emergency (ER) | payer MEDICAID ==
[2018-11-12 15:30] VITALS: BP 100/70; PULSE 96; RESP 16; TEMP 98.8; O2SAT 100
--- NOTE | 2018-11-12 17:20 | CT ---
Date of service: 11/12/2018 PROCEDURE: CT NECK WITHOUT CONTRAST HISTORY: LEFT NECK PAIN, (+) LYMPHADENOPATHY COMPARISON: None available. TECHNIQUE: CT of the neck without intravenous contrast. Coronal and sagittal reformats generated. Radiation dose: Total exam DLP = 471.21 mGy-cm. This CT exam was performed using one or more of the following dose reduction techniques: Automated exposure control, adjustment of the mA and/or kV according to patient size, and/or use of iterative reconstruction technique. FINDINGS: NASOPHARYNX: With within normal limits. SUPRAHYOID NECK: The lingual tonsils are enlarged. Unremarkable oropharynx, oral cavity, parapharyngeal space and retropharyngeal space. INFRAHYOID NECK: Unremarkable larynx, hypopharynx, and supraglottic space. Vocal cords intact. MASS: None. GLANDS: Parotid and submandibular glands unremarkable. Normal size thyroid gland, there are subcentimeter low-attenuation nodules in the left lower pole. LYMPH NODES: There there is increase in number and mildly enlarged submental, submandibular anterior and posterior cervical chain lymph nodes, the largest left upper posterior cervical chain lymph node measures 1.4 x 0.9 cm. CERVICAL SPINE: No fracture or focal lesion. OTHER FINDINGS: None. IMPRESSION: 1. Enlarged lingular tonsils. 2. Bilateral increase number and mildly enlarged submental, submandibular, anterior and posterior cervical chain lymph nodes, the largest left upper posterior cervical chain lymph node measures 1.4 x 0.9 cm. These are nonspecific and could be reactive, infectious, inflammatory or neoplastic (lymphoma) in etiology. Clinical follow-up is advised. 3. Subcentimeter nodules in the lower pole of the left thyroid lobe. A dedicated thyroid ultrasound is recommended for complete evaluation of the thyroid gland.
--- NOTE | 2018-11-12 17:23 | C.PDOC ---
History Of Present Illness 28 y/o female presents to the ER complaining of sore throat and difficulty swallowing which has been present for the past 2 weeks becoming worse over the past 3 days. Patient states that she was evaluated by her PMD in the beginning of October 2018. Patient reports that she has a scheduled outpatient US(unknown). She admits to having dry non-productive cough.Denies having fever,chills, CP,SOB, nausea, and vomiting. Time Seen by Provider: 11/12/18 15:38 Chief Complaint (Nursing): ENT Problem History Per: Patient History/Exam Limitations: None Onset/Duration Of Symptoms: Days Current Symptoms Are (Timing): Still Present Severity: Moderate Past Medical History Reviewed: Historical Data, Nursing Documentation, Vital Signs Vital Signs: Last Vital Signs Temp 98.8 F 11/12/18 15:26 Pulse 96 H 11/12/18 15:26 Resp 16 11/12/18 15:26 BP 100/70 11/12/18 15:26 Pulse Ox 100 11/12/18 15:26 - Medical History PMH: No Chronic Diseases Surgical History: Tonsillectomy, - [facility] Procedures MONITORING NOS (08/20/13) INJECT/INFUSE NEC (08/20/13) Family History: States: No Known Family Hx - Social History Hx Tobacco Use: No Hx Alcohol Use: No Hx Substance Use: No - Immunization History Hx Tetanus Toxoid Vaccination: Yes Hx Influenza Vaccination: Yes Hx Pneumococcal Vaccination: No Review Of Systems Except As Marked, All Systems Reviewed And Found Negative. Constitutional: Negative for: Fever, Chills ENT: Positive for: Throat Pain, Other (difficulty swallowing) Cardiovascular: Negative for: Chest Pain Respiratory: Negative for: Shortness of Breath Gastrointestinal: Negative for: Nausea, Vomiting Physical Exam - Physical Exam Appears: Non-toxic, No Acute Distress, Other (comfortable, speaking in full sentences) Skin: Normal Color, Warm, Dry Head: Atraumatic, Normacephalic Eye(s): bilateral: Normal Inspection Ear(s): Bilateral: Normal Nose: Normal Oral Mucosa: Moist Tongue: Normal Appearing, No Swelling Lips: Normal Appearing, No Swelling Throat: Other (uvula midline, left palatopharyngeal arch appears mildly eythematous with decreased arching, normal tonsils, normal mobile thyroid) Neck: Supple Lymphatic: Adenopathy (left sided cervical adenopathy) Chest: Symmetrical Cardiovascular: Rhythm Regular Respiratory: Normal Breath Sounds, No Rales, No Rhonchi, No Wheezing Neurological/Psych: Oriented x3, Normal Speech ED Course And Treatment O2 Sat by Pulse Oximetry: 100 (RA) Pulse Ox Interpretation: Normal - CT Scan/US CT-Neck Soft Tissue Other Rad Studies (CT/US): Read By Radiologist, Radiology Report Reviewed CT/US Interpretation: Date of service: 11/12/2018. PROCEDURE: CT NECK WITHOUT CONTRAST. HISTORY: LEFT NECK PAIN, (+) LYMPHADENOPATHY. COMPARISON: None available. TECHNIQUE: CT of the neck without intravenous contrast. Coronal and sagittal reformats generated. Radiation dose: Total exam DLP = 471.21 mGy-cm. This CT exam was performed using one or more of the following dose reduction techniques: Automated exposure control, adjustment of the mA and/or kV according to patient size, and/or use of iterative reconstruction technique. FINDINGS: NASOPHARYNX: With within normal limits. SUPRAHYOID NECK: The lingual tonsils are enlarged. Unremarkable oropharynx, oral cavity, parapharyngeal space and retropharyngeal space. INFRAHYOID NECK: Unremarkable larynx, hypopharynx, and supraglottic space. Vocal cords intact. MASS: None. GLANDS: Parotid and submandibular glands unremarkable. Normal size thyroid gland, there are subcentimeter low-attenuation nodules in the left lower pole. LYMPH NODES: There there is increase in number and mildly enlarged submental, submandibular anterior and posterior cervical chain lymph nodes, the largest left upper posterior cervical chain lymph node measures 1.4 x 0.9 cm. CERVICAL SPINE: No fracture or focal lesion. OTHER FINDINGS: None. IMPRESSION: 1. Enlarged lingular tonsils. 2. Bilateral increase number and mildly enlarged submental, submandibular, anterior and posterior cervical chain lymph nodes, the largest left upper posterior cervical chain lymph node measures 1.4 x 0.9 cm. These are nonspecific and could be reactive, infectious, inflammatory or neoplastic (lymphoma) in etiology. Clinical follow-up is advised. 3. Subcentimeter nodules in the lower pole of the left thyroid lobe. A dedicated thyroid ultrasound is recommended for complete evaluation of the thyroid gland. Disposition Counseled Patient/Family Regarding: Diagnosis, Need For Followup, Rx Given - Disposition Referrals: at [facility] [Outside] Disposition: HOME/ ROUTINE Additional Instructions: FOLLOW UP WITH YOUR DOCTOR IN 1-2 DAYS YOU MAY NEED BIOPSY OF LYMPH NODES IF THEY PERSIST AFTER USE OF ANTIBIOTICS RETURN TO ER IF SYMPTOMS WORSEN Prescriptions: Amoxicillin/Clavulanate [Augmentin 875 MG-125 MG] 1 tab PO BID #14 tab Instructions: Thyroid Nodules, Lymphadenitis (DC) Forms: [employer] ([place]ri[place]) Print Language: NEPALI - Clinical Impression Clinical Impression: Cervical lymphadenopathy, Thyroid nodule - Scribe Statement The provider has reviewed the documentation as recorded by the Alphonso Tillman Provider Attestation: All medical record entries made by the Alphonso were at my direction and personally dictated by me. I have reviewed the chart and agree that the record accurately reflects my personal performance of the history, physical exam, medical decision making, and the department course for this patient. I have also personally directed, reviewed, and agree with the discharge instructions and disposition.
== END 2018-11-12 18:10 | disposition home or self-care (01) ==
LOC: C.ER 15:22
DX: R59.1 Generalized enlarged lymph nodes (principal); E04.1 Nontoxic single thyroid nodule